=== PATIENT | male | born 2005 | race Caucasian/White ===

== ENCOUNTER 2024-08-27 21:45 | Emergency (ER) | payer SELFPAY ==
[2024-08-27] MEDS ORDERED: Ketorolac 60 MG/2 ML SDV IM ONE (22:31)
== END 2024-08-27 23:25 | disposition home or self-care (01) ==
LOC: MW.ED 21:45
DX: S63.502A Unspecified sprain of left wrist, initial encounter (principal); W22.8XXA Striking against or struck by other objects, initial encounter; Y93.89 Activity, other specified
CPT/HCPCS: 29125; 73100-26-LT; 73100-LT; 73130-26-LT; 73130-LT; 99283